=== PATIENT | male | born 2000 | race Caucasian/White ===

== ENCOUNTER 2023-12-02 11:47 | Day surgery (SDC) | payer OTHER ==
[~2023-12-02] VITALS: Ht 188 cm; Wt 137.3 kg
[2023-12-02] MEDS ORDERED: fentaNYL 100 MCG/2 ML INJECTION As Ordered ONE (11:52)
[2023-12-02] MEDS ORDERED: LIDOCAINE 2% 100MG/5ML SDV (FOR ANES.) As Ordered ONE (11:52)
[2023-12-02] MEDS ORDERED: ONDANSETRON 4MG 2ML VIAL As Ordered ONE (11:52)
[2023-12-02] MEDS ORDERED: ACETAMINOPHEN 1000MG 100ML IV BAG As Ordered ONE (11:52)
[2023-12-02] MEDS ORDERED: propofoL 200 MG/20 ML VIAL As Ordered ONE (11:52)
[2023-12-02] MEDS ORDERED: MIDAZOLAM INJ 2MG/2ML VIAL As Ordered ONE (11:53)
[2023-12-02] MEDS ORDERED: KETOROLAC 60MG 2ML VIAL As Ordered ONE (11:53)
[2023-12-02] MEDS ORDERED: LR 1,000 ML IV SCH (12:05)
[2023-12-02] MEDS ORDERED: ceFAZolin 2 GM/D5W 50 ML IV BAG As Ordered ONE (13:18)
[2023-12-02] MEDS ORDERED: ceFAZolin 1GM VIAL As Ordered ONE (13:18)
[2023-12-02] MEDS: TRANEXAMIC ACID 100 MG/ML 10ML VIAL As Ordered ONE (13:20)
[2023-12-02] MEDS: ceFAZolin SOD 1 GM in D5W MINI-BAG PLUS 50 ML IV ONE (13:20)
[2023-12-02] MEDS: ceFAZolin SOD 2 GM in IV 1 EA IV ONE (13:20)
[2023-12-02] MEDS ORDERED: ePHEDrine SULFATE 25 MG/5 ML(5MG/ML) SYRINGE As Ordered ONE (14:26)
[2023-12-02] MEDS: VANCOMYCIN 1000MG/20ML VIAL As Ordered ONE (15:03)
[2023-12-02] MEDS: TRANEXAMIC ACID 100 MG/ML 10ML VIAL IV ONE (15:03)
[2023-12-02] MEDS ORDERED: fentaNYL 100 MCG/2 ML INJECTION IV PRN (15:05)
[2023-12-02] MEDS ORDERED: MORPHINE 2 MG/ML 1ML VIAL IV PRN (15:05)
[2023-12-02] MEDS ORDERED: oxyCODONE 5MG TAB PO PRN (15:05)
[2023-12-02] MEDS ORDERED: ONDANSETRON 4MG 2ML VIAL IV PRN (15:05)
[2023-12-02 16:12] VITALS: BP 138/64; TEMP 97; O2SAT 100
== END 2023-12-02 16:15 | disposition home or self-care (01) ==
LOC: M SDC 11:47
PROVIDERS: ATTEND Orthopaedic Surgery
DX: S92.352A Displaced fracture of fifth metatarsal bone, left foot, initial encounter for closed fracture (principal); X50.0XXA Overexertion from strenuous movement or load, initial encounter; Y93.62 Activity, american flag or touch football; Y92.9 Unspecified place or not applicable
CPT/HCPCS: 28476; 73630; 76000; C1713; C9290; J0131; J0665; J0690; J1100; J1885; J2250; J2405; J3010; J3370